=== PATIENT | male | born 1960 ===

== ENCOUNTER 2024-04-09 06:48 | Day surgery (SDC) | payer OTHER ==
[2024-04-04 14:16] VITALS: BP 118/71
[~2024-04-09] VITALS: Ht 180.3 cm; Wt 83.9 kg
[2024-04-09] MEDS ORDERED: LIDOCAINE HCL 2% 20ML VIAL IJ SCH (11:15)
[2024-04-09] MEDS ORDERED: CLINDAMYCIN PHOSPHATE 150 MG/ML (900mg) IV ONE (11:15)
== END 2024-04-09 12:45 | disposition home or self-care (01) ==
LOC: CIR.AMB 06:48
PROVIDERS: ATTEND Surgery Surgery of the Hand
DX: M72.0 Palmar fascial fibromatosis [Dupuytren] (principal); Z88.6 Allergy status to analgesic agent; Z88.0 Allergy status to penicillin